=== PATIENT | male | born 2000 | race Two or more races ===

== ENCOUNTER 2023-12-20 05:00 | Day surgery (SDC) | payer OTHER ==
[2023-12-20] MEDS ORDERED: POVIDONE-IODINE 118 ML BOTT TOP ONE ×2 (07:01→08:00)
[2023-12-20] MEDS ORDERED: METRONIDAZOLE/SODIUM CHLORIDE 500 MG/100 ML PIGGYBACK IV ONE ×3 (07:01→08:00)
[2023-12-20] MEDS ORDERED: CEFTRIAXONE SODIUM 2,000 MG VIAL ONE ×2 (07:01→07:33)
[2023-12-20] MEDS ORDERED: LIDOCAINE HCL 1%/EPINEPHRINE 20ML VIAL IJ ONE ×2 (07:01→08:00)
[2023-12-20] MEDS ORDERED: BUPIVACAINE HCL/Mpf 0.5% 10ML VIAL ONE (07:01)
[2023-12-20] MEDS ORDERED: BUPIVACAINE HCL/PF 0.25% 30ML VIAL InF ONE (08:00)
[2023-12-20] MEDS ORDERED: CEFTRIAXONE SODIUM 2,000 MG VIAL IV ONE (08:00)
[2023-12-20] MEDS ORDERED: DIBUCAINE 30 GM TUBE ONE (08:07)
[2023-12-20] MEDS ORDERED: HEMOSTATIC MATRIX 1 KIT KIT TOP ONE ×2 (08:07→08:15)
[2023-12-20] MEDS ORDERED: DIBUCAINE 15 GM OINT..GM. TUBE RECTAL ONE (08:15)
[2023-12-20] MEDS ORDERED: TAMSULOSIN HCL 0.4 MG CAP PO ONE ×2 (08:30→10:11)
[2023-12-20] MEDS ORDERED: OXYC1TAB9 PO (08:35)
== END 2023-12-20 16:00 | disposition home or self-care (01) ==
LOC: CIR.AMB 05:00
PROVIDERS: ATTEND Surgery
DX: K64.2 Third degree hemorrhoids (principal); K60.1 Chronic anal fissure; K62.5 Hemorrhage of anus and rectum; F41.8 Other specified anxiety disorders